=== PATIENT | female | born 1965 | race Caucasian/White ===

== ENCOUNTER 2019-01-10 23:19 | Emergency (ER) | payer OTHER ==
[~2019-01-10] VITALS: Ht 160 cm; Wt 55.4 kg
[2019-01-10 23:23] VITALS: Ht 160 cm; Wt 55.4 kg
[2019-01-11] MEDS ORDERED: ONDANSETRON (ODT) 4 MG TAB ODT STA (01:36)
[2019-01-11 03:35] VITALS: BP 132/70; PULSE 71; RESP 16
== END 2019-01-11 04:56 | disposition home or self-care (01) ==
LOC: FTE 23:19
DX: R10.2 Pelvic and perineal pain (principal)
CPT/HCPCS: 76856; 81003; Z7502; Z7610